=== PATIENT | female | born 1965 | race Caucasian/White ===

== ENCOUNTER 2021-04-22 11:40 | Inpatient (IN) | payer OTHER ==
[2021-04-22 12:22] VITALS: BMI 34.3
[2021-04-22] MEDS ORDERED: MENTHOL/PHENOL 1 EACH UD MM PRN (13:09)
[2021-04-22] MEDS ORDERED: ACETAMINOPHEN 325 MG TABLET (FP) PO PRN ×2 (13:09)
[2021-04-22] MEDS ORDERED: methaDONE HCL 10 MG TABLET (FOR DETOX USE ONLY) PO ONE (13:09)
[2021-04-22] MEDS ORDERED: MAGNESIUM HYDROX 2400MG/30ML ORAL SUSPENSION 30 ML CUP PO PRN (13:09)
[2021-04-22] MEDS ORDERED: ONDANSETRON *ODT* 4 MG TABLET SL PRN (13:09)
[2021-04-22] MEDS ORDERED: MAG HYDROX/AL HYDROX/SIMETH 30 ML UNIT-DOSE CUP PO PRN (13:09)
[2021-04-22] MEDS ORDERED: MAGNESIUM CITRATE 300 ML BOTTLE PO PRN (13:09)
[2021-04-22] MEDS: hydrOXYzine PAMOATE 25 MG CAPSULE (FP) PO SCH ×3 (14:30→22:20)
[2021-04-22] MEDS: PRENATAL VITAMINS W/ FOLIC ACID TABLET (FP) PO SCH (14:31)
[2021-04-22 15:01] LABS: HEMATOCRIT 38.9 % (32.4-45.2); HEMOGLOBIN 13.1 GM/dL (10.7-15.3); MCH 29.8 pg (25.7-33.7); MCHC 33.7 g/dl (32.0-36.0); MEAN CELL VOLUME 88.4 fl (80-96); MEAN PLT VOLUME 7.9 fl (7.5-11.1); PLATELET COUNT 163 10^3/uL (134-434); WHITE BLOOD COUNT 5.7 K/mm3 (4.0-10.0)
[2021-04-22 15:13] LABS: CALCIUM 8.5 mg/dL (8.5-10.1)
[2021-04-22 15:14] LABS: ALBUMIN 3.7 g/dl (3.4-5.0)
[2021-04-22 15:17] LABS: CREATININE 0.8 mg/dL (0.55-1.3)
[2021-04-22 15:18] LABS: BILIRUBIN,TOTAL 0.4 mg/dL (0.2-1); TOT PROT 7.2 g/dl (6.4-8.2)
[2021-04-22] MEDS: cloNIDine HCL 0.1 MG TABLET PO PRN ×2 (18:00→22:20)
[2021-04-22] MEDS: traZODone HCL 100 MG TABLET (FP) PO SCH (22:20)
[2021-04-22] MEDS: METHOCARBAMOL 500 MG TABLET PO PRN (22:20)
[2021-04-22] MEDS: THIAMINE HCL 100 MG TABLET (FP) PO SCH (22:20)
[2021-04-22] MEDS: MELATONIN 5 MG TABLETS PO SCH (22:20)
[2021-04-23] MEDS: hydrOXYzine PAMOATE 25 MG CAPSULE (FP) PO SCH ×2 (07:14→11:09)
[2021-04-23] MEDS ORDERED: methaDONE HCL 10 MG TABLET (FOR DETOX USE ONLY) ONE (08:49)
[2021-04-23] MEDS: PRENATAL VITAMINS W/ FOLIC ACID TABLET (FP) PO SCH (10:37)
[2021-04-23] MEDS: SERTRALINE HCL 50 MG TABLET (FP) PO SCH (10:38)
[2021-04-23] MEDS: hydrOXYzine PAMOATE 25 MG CAPSULE (FP) PO PRN (10:38)
[2021-04-23] MEDS: METHOCARBAMOL 500 MG TABLET PO PRN ×2 (10:39→21:27)
[2021-04-23] MEDS: MELATONIN 5 MG TABLETS PO SCH (21:24)
[2021-04-23] MEDS: traZODone HCL 100 MG TABLET (FP) PO SCH (21:24)
[2021-04-23] MEDS: THIAMINE HCL 100 MG TABLET (FP) PO SCH (21:24)
[2021-04-24] MEDS ORDERED: methaDONE HCL 10 MG TABLET (FOR DETOX USE ONLY) PO ONE (10:00)
[2021-04-24] MEDS: SERTRALINE HCL 50 MG TABLET (FP) PO SCH (10:20)
[2021-04-24] MEDS: PRENATAL VITAMINS W/ FOLIC ACID TABLET (FP) PO SCH (10:21)
[2021-04-24] MEDS: IBUPROFEN 400 MG TABLET (FP) PO PRN ×2 (10:22→19:16)
[2021-04-24] MEDS: METHOCARBAMOL 500 MG TABLET PO PRN ×2 (10:23→22:10)
[2021-04-24] MEDS: BISMUTH SUBSALICYLATE 262 MG/15 ML BTL PO PRN (10:23)
[2021-04-24] MEDS: hydrOXYzine PAMOATE 25 MG CAPSULE (FP) PO PRN ×2 (10:24→22:10)
[2021-04-24] MEDS: MELATONIN 5 MG TABLETS PO SCH (22:09)
[2021-04-24] MEDS: traZODone HCL 100 MG TABLET (FP) PO SCH (22:09)
[2021-04-24] MEDS: THIAMINE HCL 100 MG TABLET (FP) PO SCH (22:10)
[2021-04-24] MEDS: cloNIDine HCL 0.1 MG TABLET PO PRN (22:10)
[2021-04-25] MEDS ORDERED: methaDONE HCL 10 MG TABLET (FOR DETOX USE ONLY) ONE (08:55)
[2021-04-25] MEDS: IBUPROFEN 400 MG TABLET (FP) PO PRN (09:55)
[2021-04-25] MEDS: METHOCARBAMOL 500 MG TABLET PO PRN ×2 (09:55→22:11)
[2021-04-25] MEDS: hydrOXYzine PAMOATE 25 MG CAPSULE (FP) PO PRN ×2 (09:55→22:11)
[2021-04-25] MEDS: PRENATAL VITAMINS W/ FOLIC ACID TABLET (FP) PO SCH (09:56)
[2021-04-25] MEDS: SERTRALINE HCL 50 MG TABLET (FP) PO SCH (09:56)
[2021-04-25] MEDS: BISMUTH SUBSALICYLATE 262 MG/15 ML BTL PO PRN (09:59)
[2021-04-25] MEDS: THIAMINE HCL 100 MG TABLET (FP) PO SCH (22:10)
[2021-04-25] MEDS: MELATONIN 5 MG TABLETS PO SCH (22:10)
[2021-04-25] MEDS: traZODone HCL 100 MG TABLET (FP) PO SCH (22:10)
[2021-04-26] MEDS: PRENATAL VITAMINS W/ FOLIC ACID TABLET (FP) PO SCH (09:31)
[2021-04-26] MEDS: SERTRALINE HCL 50 MG TABLET (FP) PO SCH (09:31)
[2021-04-26] MEDS: IBUPROFEN 400 MG TABLET (FP) PO PRN (09:32)
[2021-04-26] MEDS: BISMUTH SUBSALICYLATE 262 MG/15 ML BTL PO PRN (09:32)
[2021-04-26] MEDS: hydrOXYzine PAMOATE 25 MG CAPSULE (FP) PO PRN ×2 (09:34→22:36)
[2021-04-26] MEDS ORDERED: methaDONE HCL 10 MG TABLET (FOR DETOX USE ONLY) PO ONE (10:00)
[2021-04-26] MEDS: METHOCARBAMOL 500 MG TABLET PO PRN (10:18)
[2021-04-26] MEDS: MELATONIN 5 MG TABLETS PO SCH (22:36)
[2021-04-26] MEDS: THIAMINE HCL 100 MG TABLET (FP) PO SCH (22:37)
[2021-04-26] MEDS: traZODone HCL 100 MG TABLET (FP) PO SCH (22:37)
[2021-04-27 09:48] VITALS: BP 121/86; PULSE 81; TEMP 97.3
[2021-04-27] MEDS: SERTRALINE HCL 50 MG TABLET (FP) PO SCH (10:36)
[2021-04-27] MEDS: PRENATAL VITAMINS W/ FOLIC ACID TABLET (FP) PO SCH (10:36)
== END 2021-04-27 11:14 | disposition other institution (70) | DRG 773 ==
LOC: YASAS 11:40 → Y3N 13:27
PROVIDERS: ADMIT Allergy & Immunology; ATTEND Allergy & Immunology
PROC: HZ2ZZZZ Detoxification Services for Substance Abuse Treatment (ICD-10-PCS; principal; 2021-04-22)
DX: F11.23 Opioid dependence with withdrawal (principal); F10.230 Alcohol dependence with withdrawal, uncomplicated; F12.20 Cannabis dependence, uncomplicated; F41.9 Anxiety disorder, unspecified; F19.24 Other psychoactive substance dependence with psychoactive substance-induced mood disorder; F32.9 Major depressive disorder, single episode, unspecified; R73.9 Hyperglycemia, unspecified; G47.00 Insomnia, unspecified; E66.9 Obesity, unspecified; Z68.34 Body mass index [BMI] 34.0-34.9, adult; Z87.891 Personal history of nicotine dependence
CPT/HCPCS: 36415; 80053; 81025; 82947; 83036; 85027; 86780; 93005; 93010; C9803; J0735; U0003; U0005

== ENCOUNTER 2021-04-27 11:18 | Inpatient (IN) | payer OTHER ==
[2021-04-27] MEDS ORDERED: guaiFENesin 200 MG/10 ML 10 ML UNIT-DOSE CUPS PO PRN (11:39)
[2021-04-27] MEDS ORDERED: IBUPROFEN 400 MG TABLET (FP) PO PRN (11:39)
[2021-04-27] MEDS ORDERED: LOPERAMIDE HCL 2 MG CAPSULE PO PRN (11:39)
[2021-04-27] MEDS ORDERED: MENTHOL/PHENOL 1 EACH UD MM PRN (11:39)
[2021-04-27] MEDS ORDERED: MAG HYDROX/AL HYDROX/SIMETH 30 ML UNIT-DOSE CUP PO PRN (11:39)
[2021-04-27] MEDS ORDERED: ACETAMINOPHEN 325 MG TABLET (FP) PO PRN (11:39)
[2021-04-27] MEDS ORDERED: NICOTINE 10 MG CARTRIDGE (INHALER) IH PRN (11:39)
[2021-04-27] MEDS ORDERED: hydrOXYzine PAMOATE 25 MG CAPSULE (FP) PO PRN (11:39)
[2021-04-27] MEDS ORDERED: MAGNESIUM HYDROX 2400MG/30ML ORAL SUSPENSION 30 ML CUP PO PRN (11:39)
[2021-04-27] MEDS ORDERED: P-EPHED 60MG/TRIPROLIDI 2.5MG TABLET PO PRN (11:39)
[2021-04-27] MEDS ORDERED: MAGNESIUM CITRATE 300 ML BOTTLE PO PRN (11:39)
[2021-04-27] MEDS ORDERED: PNEUMOC 13-VAL CONJ-DIP CRM/PF 0.5 ML DISP.SYRIN IM ONE (11:44)
[2021-04-27 16:00] LABS: EPI CELLS >36 /uL (0-25.1); HYALINE CASTS 3 /uL (0-3.1); URINE APPEARANCE CLEAR; URINE BACTERIA 2769 /uL (0-1359); URINE BILIRUBIN NEGATIVE (NEGATIVE); URINE COLOR DK YELLOW; URINE GLUCOSE (UA) NEGATIVE (NEGATIVE); URINE KETONE TRACE (NEGATIVE); URINE LEUK ESTERASE TRACE (NEGATIVE); URINE NITRITE NEGATIVE (NEGATIVE); URINE PROTEIN NEGATIVE (NEGATIVE); URINE RBC 7 /uL (0-23.9); URINE WBC 40 /uL (0-25.8)
[2021-04-27] MEDS: MELATONIN 5 MG TABLETS PO SCH (22:06)
[2021-04-27] MEDS: THIAMINE HCL 100 MG TABLET (FP) PO SCH (22:06)
[2021-04-27] MEDS: traZODone HCL 100 MG TABLET (FP) PO SCH (22:06)
[2021-04-28] MEDS: SERTRALINE HCL 50 MG TABLET (FP) PO SCH (09:37)
[2021-04-28] MEDS: PRENATAL VITAMINS W/ FOLIC ACID TABLET (FP) PO SCH (09:38)
[2021-04-28] MEDS: NICOTINE 21 MG/24 HOURS TOPICAL PATCH TD SCH (09:38)
[2021-04-28] MEDS ORDERED: PNEUMOCOCCAL 23 VACCINE 0.5 ML VIAL IM ONE (12:00)
[2021-04-28] MEDS: MELATONIN 5 MG TABLETS PO SCH (21:11)
[2021-04-28] MEDS: traZODone HCL 100 MG TABLET (FP) PO SCH (21:11)
[2021-04-28] MEDS: THIAMINE HCL 100 MG TABLET (FP) PO SCH (21:11)
[2021-04-29] MEDS: NICOTINE 21 MG/24 HOURS TOPICAL PATCH TD SCH (10:05)
[2021-04-29] MEDS: SERTRALINE HCL 50 MG TABLET (FP) PO SCH (10:05)
[2021-04-29] MEDS: PRENATAL VITAMINS W/ FOLIC ACID TABLET (FP) PO SCH (10:05)
[2021-04-29] MEDS: traZODone HCL 50 MG TABLET (FP) PO SCH (21:21)
[2021-04-29] MEDS: THIAMINE HCL 100 MG TABLET (FP) PO SCH (21:22)
[2021-04-29] MEDS: MELATONIN 5 MG TABLETS PO SCH (21:22)
[2021-04-30] MEDS: SERTRALINE HCL 50 MG TABLET (FP) PO SCH (10:06)
[2021-04-30] MEDS: NICOTINE 21 MG/24 HOURS TOPICAL PATCH TD SCH (10:06)
[2021-04-30] MEDS: PRENATAL VITAMINS W/ FOLIC ACID TABLET (FP) PO SCH (10:06)
[2021-04-30] MEDS: MELATONIN 5 MG TABLETS PO SCH (21:22)
[2021-04-30] MEDS: traZODone HCL 50 MG TABLET (FP) PO SCH (21:23)
[2021-04-30] MEDS: THIAMINE HCL 100 MG TABLET (FP) PO SCH (21:23)
[2021-05-01] MEDS: NICOTINE 21 MG/24 HOURS TOPICAL PATCH TD SCH (10:17)
[2021-05-01] MEDS: PRENATAL VITAMINS W/ FOLIC ACID TABLET (FP) PO SCH (10:17)
[2021-05-01] MEDS: SERTRALINE HCL 50 MG TABLET (FP) PO SCH (10:17)
[2021-05-01] MEDS: traZODone HCL 50 MG TABLET (FP) PO SCH (21:24)
[2021-05-01] MEDS: MELATONIN 5 MG TABLETS PO SCH (21:24)
[2021-05-01] MEDS: THIAMINE HCL 100 MG TABLET (FP) PO SCH (21:25)
[2021-05-02] MEDS: NICOTINE 21 MG/24 HOURS TOPICAL PATCH TD SCH (09:53)
[2021-05-02] MEDS: SERTRALINE HCL 50 MG TABLET (FP) PO SCH (09:53)
[2021-05-02] MEDS: PRENATAL VITAMINS W/ FOLIC ACID TABLET (FP) PO SCH (09:53)
[2021-05-02] MEDS: THIAMINE HCL 100 MG TABLET (FP) PO SCH (21:13)
[2021-05-02] MEDS: traZODone HCL 50 MG TABLET (FP) PO SCH (21:13)
[2021-05-02] MEDS: MELATONIN 5 MG TABLETS PO SCH (21:13)
[2021-05-03] MEDS: SERTRALINE HCL 50 MG TABLET (FP) PO SCH (10:12)
[2021-05-03] MEDS: NICOTINE 21 MG/24 HOURS TOPICAL PATCH TD SCH (10:12)
[2021-05-03] MEDS: PRENATAL VITAMINS W/ FOLIC ACID TABLET (FP) PO SCH (10:12)
[2021-05-03] MEDS: traZODone HCL 50 MG TABLET (FP) PO SCH (21:53)
[2021-05-03] MEDS: THIAMINE HCL 100 MG TABLET (FP) PO SCH (21:54)
[2021-05-03] MEDS: MELATONIN 5 MG TABLETS PO SCH (21:54)
[2021-05-04] MEDS: PRENATAL VITAMINS W/ FOLIC ACID TABLET (FP) PO SCH (09:52)
[2021-05-04] MEDS: SERTRALINE HCL 50 MG TABLET (FP) PO SCH (09:52)
[2021-05-04] MEDS: NALTREXONE HCL 50 MG TABLET PO SCH (09:52)
[2021-05-04] MEDS: NICOTINE 21 MG/24 HOURS TOPICAL PATCH TD SCH (09:52)
[2021-05-04] MEDS: THIAMINE HCL 100 MG TABLET (FP) PO SCH (21:18)
[2021-05-04] MEDS: traZODone HCL 50 MG TABLET (FP) PO SCH (21:18)
[2021-05-04] MEDS: MELATONIN 5 MG TABLETS PO SCH (21:18)
[2021-05-05] MEDS: NICOTINE 21 MG/24 HOURS TOPICAL PATCH TD SCH (10:24)
[2021-05-05] MEDS: SERTRALINE HCL 50 MG TABLET (FP) PO SCH (10:24)
[2021-05-05] MEDS: PRENATAL VITAMINS W/ FOLIC ACID TABLET (FP) PO SCH (10:24)
[2021-05-05] MEDS: NALTREXONE HCL 50 MG TABLET PO SCH ×2 (10:24→21:38)
[2021-05-05] MEDS: traZODone HCL 50 MG TABLET (FP) PO SCH (21:37)
[2021-05-05] MEDS: MELATONIN 5 MG TABLETS PO SCH (21:38)
[2021-05-05] MEDS: THIAMINE HCL 100 MG TABLET (FP) PO SCH (21:38)
[2021-05-06] MEDS: NICOTINE 21 MG/24 HOURS TOPICAL PATCH TD SCH (09:55)
[2021-05-06] MEDS: SERTRALINE HCL 50 MG TABLET (FP) PO SCH (09:55)
[2021-05-06] MEDS: PRENATAL VITAMINS W/ FOLIC ACID TABLET (FP) PO SCH (09:55)
[2021-05-06] MEDS: MELATONIN 5 MG TABLETS PO SCH (21:17)
[2021-05-06] MEDS: traZODone HCL 50 MG TABLET (FP) PO SCH (21:17)
[2021-05-06] MEDS: THIAMINE HCL 100 MG TABLET (FP) PO SCH (21:17)
[2021-05-06] MEDS: NALTREXONE HCL 50 MG TABLET PO SCH (21:17)
[2021-05-07] MEDS: SERTRALINE HCL 50 MG TABLET (FP) PO SCH (09:59)
[2021-05-07] MEDS: PRENATAL VITAMINS W/ FOLIC ACID TABLET (FP) PO SCH (10:00)
[2021-05-07] MEDS: NICOTINE 21 MG/24 HOURS TOPICAL PATCH TD SCH (10:00)
[2021-05-07] MEDS: traZODone HCL 50 MG TABLET (FP) PO SCH (21:40)
[2021-05-07] MEDS: NALTREXONE HCL 50 MG TABLET PO SCH (21:40)
[2021-05-07] MEDS: MELATONIN 5 MG TABLETS PO SCH (21:41)
[2021-05-07] MEDS: THIAMINE HCL 100 MG TABLET (FP) PO SCH (22:03)
[2021-05-08] MEDS: SERTRALINE HCL 50 MG TABLET (FP) PO SCH (09:50)
[2021-05-08] MEDS: PRENATAL VITAMINS W/ FOLIC ACID TABLET (FP) PO SCH (09:51)
[2021-05-08] MEDS: NICOTINE 21 MG/24 HOURS TOPICAL PATCH TD SCH (09:51)
[2021-05-08] MEDS: traZODone HCL 50 MG TABLET (FP) PO SCH (21:17)
[2021-05-08] MEDS: MELATONIN 5 MG TABLETS PO SCH (21:19)
[2021-05-08] MEDS: NALTREXONE HCL 50 MG TABLET PO SCH (21:19)
[2021-05-08] MEDS: THIAMINE HCL 100 MG TABLET (FP) PO SCH (21:19)
[2021-05-09] MEDS: NICOTINE 21 MG/24 HOURS TOPICAL PATCH TD SCH (09:55)
[2021-05-09] MEDS: PRENATAL VITAMINS W/ FOLIC ACID TABLET (FP) PO SCH (09:55)
[2021-05-09] MEDS: SERTRALINE HCL 50 MG TABLET (FP) PO SCH (09:55)
[2021-05-09] MEDS: MELATONIN 5 MG TABLETS PO SCH (21:30)
[2021-05-09] MEDS: NALTREXONE HCL 50 MG TABLET PO SCH (21:30)
[2021-05-09] MEDS: traZODone HCL 50 MG TABLET (FP) PO SCH (21:30)
[2021-05-09] MEDS: THIAMINE HCL 100 MG TABLET (FP) PO SCH (21:31)
[2021-05-10] MEDS ORDERED: PT OWN MED DRAWER 7, Y5N ONE ×2 (08:43→10:57)
[2021-05-10] MEDS: SERTRALINE HCL 50 MG TABLET (FP) PO SCH (09:47)
[2021-05-10] MEDS: PRENATAL VITAMINS W/ FOLIC ACID TABLET (FP) PO SCH (10:21)
[2021-05-10] MEDS: NICOTINE 21 MG/24 HOURS TOPICAL PATCH TD SCH (10:21)
[2021-05-10] MEDS: MELATONIN 5 MG TABLETS PO SCH (21:17)
[2021-05-10] MEDS: NALTREXONE HCL 50 MG TABLET PO SCH (21:17)
[2021-05-10] MEDS: traZODone HCL 50 MG TABLET (FP) PO SCH (21:17)
[2021-05-10] MEDS: THIAMINE HCL 100 MG TABLET (FP) PO SCH (21:17)
[2021-05-11 07:13] VITALS: TEMP 97.8
[2021-05-11] MEDS: PRENATAL VITAMINS W/ FOLIC ACID TABLET (FP) PO SCH (09:56)
[2021-05-11] MEDS: SERTRALINE HCL 50 MG TABLET (FP) PO SCH (09:56)
[2021-05-11] MEDS: NICOTINE 21 MG/24 HOURS TOPICAL PATCH TD SCH (09:56)
[2021-05-11] MEDS: traZODone HCL 50 MG TABLET (FP) PO SCH (21:25)
[2021-05-11] MEDS: MELATONIN 5 MG TABLETS PO SCH (21:25)
[2021-05-11] MEDS: NALTREXONE HCL 50 MG TABLET PO SCH (21:26)
[2021-05-11] MEDS: THIAMINE HCL 100 MG TABLET (FP) PO SCH (21:26)
[2021-05-12] MEDS: SERTRALINE HCL 50 MG TABLET (FP) PO SCH (10:20)
[2021-05-12] MEDS: NICOTINE 21 MG/24 HOURS TOPICAL PATCH TD SCH (10:45)
[2021-05-12] MEDS: PRENATAL VITAMINS W/ FOLIC ACID TABLET (FP) PO SCH (10:45)
[2021-05-12 14:07] LABS: SARS-CoV-2 NAA Not Detected (Not Detected)
[2021-05-12] MEDS: NALTREXONE HCL 50 MG TABLET PO SCH (21:23)
[2021-05-12] MEDS: THIAMINE HCL 100 MG TABLET (FP) PO SCH (21:23)
[2021-05-12] MEDS: traZODone HCL 50 MG TABLET (FP) PO SCH (21:23)
[2021-05-12] MEDS: MELATONIN 5 MG TABLETS PO SCH (21:23)
[2021-05-13 07:03] VITALS: BP 108/71; PULSE 75
[2021-05-13] MEDS: SERTRALINE HCL 50 MG TABLET (FP) PO SCH (09:30)
[2021-05-13] MEDS: PRENATAL VITAMINS W/ FOLIC ACID TABLET (FP) PO SCH (09:30)
[2021-05-13] MEDS: NICOTINE 21 MG/24 HOURS TOPICAL PATCH TD SCH (09:30)
== END 2021-05-13 09:47 | disposition home or self-care (01) | DRG 772 ==
LOC: YASAS 11:18 → Y3W 11:22
PROVIDERS: ADMIT Allergy & Immunology; ATTEND Allergy & Immunology
PROC: HZ42ZZZ Group Counseling for Substance Abuse Treatment, Cognitive-Behavioral (ICD-10-PCS; principal; 2021-04-27)
DX: F11.20 Opioid dependence, uncomplicated (principal); F10.20 Alcohol dependence, uncomplicated; F12.20 Cannabis dependence, uncomplicated; F41.8 Other specified anxiety disorders; F32.9 Major depressive disorder, single episode, unspecified; G47.00 Insomnia, unspecified; E66.9 Obesity, unspecified; Z68.32 Body mass index [BMI] 32.0-32.9, adult; Z87.891 Personal history of nicotine dependence; Z98.84 Bariatric surgery status; Z98.890 Other specified postprocedural states
CPT/HCPCS: 81003; 90732; C9803; G0009; U0003; U0005